=== PATIENT | male | born 1995 | race Caucasian/White ===

== ENCOUNTER 2017-11-04 08:13 | Emergency (ER) | payer OTHER, BC | END 2017-11-04 08:44 | disposition home or self-care (01) | LOC: M ED 08:13 | DX: R10.9 Unspecified abdominal pain (principal) | CPT/HCPCS: 99282 ==

== ENCOUNTER → 2019-08-09 | Outpatient (REF) | payer BC ==
[2019-08-09 11:56] LABS: HEMATOCRIT 46.8 % (42.0-52.0); HEMOGLOBIN 15.8 g/dl (13.5-17.5); MEAN CORPUSCULAR HEMOGLOBIN 28.5 pg (27.0-33.0); MEAN CORPUSCULAR HGB CONC 33.8 g/dl (32.0-36.5); MEAN CORPUSCULAR VOLUME 84.5 fl (80.0-96.0); PLATELET COUNT, AUTOMATED 236 10^3/uL (150-450); RED BLOOD COUNT 5.54 10^6/uL (4.30-6.10); WHITE BLOOD COUNT 7.1 10^3/uL (4.0-10.0)
[2019-08-09 12:17] LABS: ALBUMIN 4.4 GM/DL (3.2-5.2); ALT/SGPT 50 U/L (12-78); BILIRUBIN,TOTAL 0.5 MG/DL (0.2-1.0); BLOOD UREA NITROGEN 11 MG/DL (7-18); CALCIUM LEVEL 9.7 MG/DL (8.5-10.1); CARBON DIOXIDE LEVEL 32 MEQ/L (21-32); CHLORIDE LEVEL 104 MEQ/L (98-107); CHOLESTEROL LEVEL 228 MG/DL (<200); CREATININE FOR GFR 0.88 MG/DL (0.70-1.30); GLOMERULAR FILTRATION RATE > 60.0 (>60); GLUCOSE, FASTING 88 MG/DL (70-100); HDL CHOLESTEROL 40 MG/DL (>40); LDL CHOLESTEROL 140 MG/DL (<100); NON-HDL-C 188 MG/DL; POTASSIUM SERUM 4.5 MEQ/L (3.5-5.1); SODIUM LEVEL 141 MEQ/L (136-145); TOTAL PROTEIN 8.1 GM/DL (6.4-8.2); TRIGLYCERIDES LEVEL 239 MG/DL (<150)
[2019-08-09 12:34] LABS: HEMOGLOBIN A1c 4.8 %
== END ==
LOC: M SFHCPLAZ 09:50
PROVIDERS: ATTEND Nurse Practitioner Adult Health
DX: Z00.00 Encounter for general adult medical examination without abnormal findings (principal); Z83.3 Family history of diabetes mellitus; Z13.220 Encounter for screening for lipoid disorders

== ENCOUNTER → 2020-10-07 | Outpatient (CLI) | payer BC ==
--- NOTE | 2020-10-07 13:22 | REP ---
INDICATION: HTN. COMPARISON: None. TECHNIQUE: Urinary tract sonography with renal artery Doppler assessment. FINDINGS: Scanning of the level of the urinary bladder shows no abnormality. Renal cortical echogenicity pattern is normal and renal contours are smooth. There is no evidence of hydronephrosis on either side. No cyst, mass, or calculus is seen. Right renal dimensions are 10.8 x 6.2 x 4.8 cm. Left kidney measures 10.9 x 5.5 x 5.2 cm. Renal artery Doppler data: Peak systolic flow velocity in the abdominal aorta at the level of main renal arteries is normal measured at 125 centimeters/second. Peak systolic flow velocity in the left main renal artery is 89 centimeters/second and that in the right 111 cm per 2nd. These values are normal. The renal to aortic flow over a velocity ratios are therefore normal at 1.1 on the right and 1.4 on the left. Resistive indices and acceleration times are measured in the intralobar arteries of the upper, mid, and lower pole of each kidney. These values are normal bilaterally. IMPRESSION: Unremarkable urinary tract sonography morphologically. No Doppler evidence to suggest renal artery stenosis. <Electronically signed by Darwin Cordoba > 10/07/20 [id number]
== END ==
LOC: M RAD 08:52
PROVIDERS: ATTEND Nurse Practitioner Adult Health
DX: I10 Essential (primary) hypertension (principal)

== ENCOUNTER → 2023-03-14 | Outpatient (CLI) | payer OTHER ==
[2023-03-14 11:07] LABS: HEMOGLOBIN 15.3 g/dl (13.5-17.5); MEAN CORPUSCULAR HEMOGLOBIN 28.9 pg (27.0-33.0); MEAN CORPUSCULAR VOLUME 85.1 fl (80.0-96.0); PLATELET COUNT, AUTOMATED 218 10^3/uL (150-450); RED BLOOD COUNT 5.29 10^6/uL (4.30-6.10)
[2023-03-14 11:29] LABS: HEMOGLOBIN A1c 4.7 % (4.0-6.0)
[2023-03-14 11:35] LABS: ALBUMIN 4.2 G/DL (3.2-5.2); ALKALINE PHOSPHATASE 77 U/L (46-116); ALT/SGPT 32 U/L (7.0-40); AST/SGOT 17 U/L (<34); BILIRUBIN,TOTAL 0.6 MG/DL (0.3-1.2); BLOOD UREA NITROGEN 14 MG/DL (9-23); CALCIUM LEVEL 10.7 MG/DL (8.5-10.1); CARBON DIOXIDE LEVEL 29 MMOL/L (20-31); CHLORIDE LEVEL 101 MMOL/L (98-107); CHOLESTEROL LEVEL 219 MG/DL (<200); CHOLESTEROL RISK RATIO 4.98 (<5); CREATININE FOR GFR 0.82 MG/DL (0.70-1.30); GLOMERULAR FILTRATION RATE > 60.0 (>60); GLUCOSE, FASTING 85 MG/DL (60-100); HDL CHOLESTEROL 43.9 MG/DL (>40); LDL CHOLESTEROL 102.7 MG/DL (<100); NON-HDL-C 175.1 MG/DL; POTASSIUM SERUM 4.7 MMOL/L (3.5-5.1); SODIUM LEVEL 138 MMOL/L (136-145); THYROID STIMULATING HORMONE 1.959 uIU/ML (0.55-4.78); TOTAL PROTEIN 7.5 G/DL (5.7-8.2); TRIGLYCERIDES LEVEL 362 MG/DL (<150)
== END ==
LOC: M PLALAB 07:40
PROVIDERS: ATTEND Nurse Practitioner Adult Health
DX: I10 Essential (primary) hypertension (principal)